=== PATIENT | female | born 1950 | race Caucasian/White ===

== ENCOUNTER 2019-07-09 14:29 | Outpatient (CLI) | payer MEDICARE, OTHER, SELFPAY ==
--- NOTE | 2019-07-09 14:40 | MM_ITS ---
WS: [id number] SCREENING DIGITAL MAMMOGRAM WITH CAD HISTORY: SCREENING COMPARISON: 04/05/2017 and 03/07/2016 Bilateral CC and MLO views submitted. Computer aided detection analyzed. Breast composition: There are scattered areas of fibroglandular density. No suspicious masses, microc alcifications or architectural distortion. MM/[place] [id number] IMPRESSION: BI-RADS: 1-Negative FOLLOW UP: 1 Year Follow-up
--- NOTE | 2019-07-09 15:16 | XR_ITS ---
WS: [id number] SCREENING DEXA SCAN [facility] CLINICAL INFORMATION: ASYMPTOMATIC POST MENOPAUSAL STATUS COMPARISON: None. FINDINGS: The L1-L4 bone mineral density measures 0.905 g/cm2. This corresponds to a T score score of -2.3 and Z score of -0.7. Left femoral neck bone mineral density measures 0.764 g/cm2. This corresponds to a T score of -1.9 an d Z score of -0.5. Right femoral neck bone mineral density measures 0.746 g/cm2. This corresponds to a T score -2.1of an d Z score of -0.6. Mean femoral neck bone mineral density measures 0.755 g/cm2. This corresponds to a T score of -2.0 an d Z score of -0.6. XR/XR DEXA axial skeleton* [id number] IMPRESSION: Osteopenia. Patient's FRAX calculated 10 year probability for major osteoporotic fracture i s 23.1 % and osteoporotic hip fracture is 5.9%.
== END 2019-07-09 14:30 | disposition home or self-care (01) ==
PROVIDERS: Family Provider Nurse Practitioner; PCP Internal Medicine; Visit Provider Internal Medicine
DX: Z12.31 Encounter for screening mammogram for malignant neoplasm of breast (principal); Z78.0 Asymptomatic menopausal state
CPT/HCPCS: 77067; 77080

== ENCOUNTER → 2019-08-07 13:30 | Outpatient (BNVA) | payer MEDICARE, OTHER, SELFPAY | PROVIDERS: Family Provider Nurse Practitioner; PCP Internal Medicine; Visit Provider Specialist | DX: G43.711 Chronic migraine without aura, intractable, with status migrainosus (principal) | CPT/HCPCS: 64615; J0585 ==

== ENCOUNTER → 2019-10-30 13:28 | Outpatient (BNVA) | payer MEDICARE, OTHER, SELFPAY | PROVIDERS: Family Provider Nurse Practitioner; PCP Internal Medicine; Visit Provider Specialist | DX: G43.711 Chronic migraine without aura, intractable, with status migrainosus (principal) | CPT/HCPCS: 64615; J0585 ==

== ENCOUNTER 2020-07-02 12:00 | Outpatient (CLI) | payer MEDICARE, OTHER, SELFPAY | END 2020-07-02 12:01 | disposition home or self-care (01) | LOC: SLEEP 07-12 12:24 | PROVIDERS: Family Provider Nurse Practitioner; PCP Internal Medicine; Visit Provider Internal Medicine | DX: G47.10 Hypersomnia, unspecified (principal); R06.83 Snoring; R53.83 Other fatigue | CPT/HCPCS: G0399 ==

== ENCOUNTER 2020-12-09 14:36 | Emergency (ER) | payer MEDICARE, OTHER, SELFPAY ==
[2020-12-09 15:41] VITALS: BP 128/79; PULSE 100; RESP 18; TEMP 36.7; O2SAT 94; BMI 22.1
[2020-12-09 18:32] VITALS: BP 141/79; PULSE 113; RESP 20; TEMP 36.8; O2SAT 96
--- NOTE | 2020-12-09 18:35 | ED_ITS ---
HPI - General Adult General: Chief complaint: Headache Stated complaint: Headache Time Seen by Provider: 12/09/20 18:29 History of Present Illness: HPI narrative: 70-year-old female comes in today with 2-week episode of cough and congestion. Patient reports for the last 2 days she has had increased migraine symptoms. Patient was tested last for COVID-19 was negative. Patient was referred to the ER for chest x-ray and laboratory values for suspected pneumonia. Patient appears mildly unwell but not toxic. Respirations are even. Patient appears in mild to moderate pain. Patient reports that this is the worst headache she has had in a long time. Review of Systems General: Reports: 10 or more systems reviewed and unremarkable except in HPI and below ENMT: Reports: nasal congestion Resp: Reports: non-productive cough PFSH ED PFSH: Family History Other CAD (coronary artery disease) Cancer Diabetes Hypertension Social History Smoking and tobacco status: never smoked Physical Exam Const: COMMON NORMALS: no acute distress and patient oriented x3 GENERAL APPEARANCE: cooperative HENMT: COMMON NORMALS: normocephalic and TM's normal bilaterally HEAD & SCALP: normal to inspection and normocephalic NOSE: Nasal discharge present TYMPANIC MEMBRANE: TM's normal bilaterally MOUTH: Normal oral and palatal mucosa present THROAT: posterior oropharynx abnormal erythema Eye: GENERAL EYE: appearance normal, both eyes and all related structures Neck/C-Spine: COMMON NORMALS: full ROM Lymph: LYMPHATIC: no lymphadenopathy noted Chest: COMMONS NORMALS: normal inspection of the chest Resp: COMMON NORMALS: normal respiratory effort EFFORT & INSPECTION: Yes able to speak in complete sentences Cardio: COMMON NORMALS: regular rate and regular rhythm RATE: regular rate RHYTHM: regular rhythm GI: COMMON NORMALS: non-tender Back/Pelvis: COMMON NORMALS: thoracic and lumbar spine normal to inspection Extremity: COMMON NORMALS: normal to inspection Neuro: COMMON NORMALS: patient oriented x3 and moves all extremities Psych: COMMON NORMALS: mental status grossly normal and cooperative Skin: COMMON NORMALS: no rashes or lesions noted GENERAL SKIN EXAM: no rashes or lesions noted Course Vital Signs: Vital signs: Vital Signs Temperature 98.3 F 07/08/21 18:32 Pulse Rate 86 12/09/20 19:57 Respiratory Rate 16 12/09/20 19:57 Blood Pressure 114/61 12/09/20 19:57 Pulse Oximetry 95 12/09/20 19:57 MDM - General Adult MDM Narrative: Medical decision making narrative: 70-year-old female comes in with 6 headache. Patient reports frontal type headache been going on for about 2 weeks. Patient has been seen by primary care and diagnosed with a upper respiratory infection and has been given injections for her symptoms. Patient had been tested for Covid last week and was negative. On exam patient appears in mild to moderate pain. Patient is alert oriented. No signs of meningismus is noted. Pupils are equal and reactive. No focal neuro deficits. Patient m oves all extremities well. Differential diagnosis includes but not limited to migraine headache, sinusitis, upper respiratory infection, COVID-19. COVID-19 test was negative. Laboratory values noted to increase in white blood cell count 14.5, some increase in CRP. CT of the head indicated significant sinusitis. Remainder of exam was normal. Patient was given a dose of Rocephin IV along with dexamethasone. Patient was also treated for her migraine headache with Toradol, Reglan, and 2 mg of morphine. Patient will be continued on Augmentin and Flonase for her sinusitis and hydrocodone for pain. Patient reported understanding of care plan and need for follow-up or return to the ER. Lab Data: Labs: Lab Results 12/09/20 12/09/20 12/09/20 Range/Units 18:30 18:45 18:50 WBC 14.5 H (4.0-10.0) 10^3/ uL RBC 4.44 (4.1-5.3) 10^6/u L Hgb 13.4 (11.5-15.3) g/dL Hct 41.1 (37.0-47.0) % MCV 92.6 (81-99) fL MCH 30.2 (28.0-34.0) pg MCHC 32.6 (30.0-36.0) g/dL RDW 12.0 L (12.1-15.1) % Plt Count 403 H (130-400) 10^3/c mm MPV 10.6 H (7.4-10.4) fL Neut % (Auto) 76.7 % Lymph % (Auto) 11.6 % [place] % (Auto) 9.4 % Eos % (Auto) 0.9 % Baso % (Auto) 0.5 % Neut # (Auto) 11.17 H (1.8-7.7) 10^3/u L Lymph # (Auto) 1.7 (0.8-4.8) 10^3/u L [place] # (Auto) 1.4 H (0.2-0.9) 10^3/u L Eos # (Auto) 0.1 (0.0-0.8) 10^3/u L Baso # (Auto) 0.1 (0.0-0.1) 10^3/u L Nucleated RBC % (a uto) 0 % Nucleated RBCs # 0.0 /100WBC Sodium (136-145) mmol/L Potassium (3.5-5.1) mmol/L Chloride (98-107) mmol/L Carbon Dioxide (22-29) mmol/L Anion Gap (5-19) BUN (8-23) mg/dL Creatinine (0.5-0.9) mg/dL GFR Calculation Glucose (65-115) mg/dL Calculated Osmolal ity (285-295) mOsm/k g Lactate (0.5-2.2) mmol/L Calcium (8.5-10.5) mg/dL Total Bilirubin (0.15-1.2) mg/dL AST (0-32) U/L ALT (0-33) U/L Alkaline Phosphata se (35-105) IU/L C-Reactive Protein (0.0-4.9) mg/L Total Protein (6.6-8.7) g/dL Albumin (3.5-5.2) g/dL Globulin (1.3-4.6) g/dL Procalcitonin (0-0.5) ng/mL Urine Color Yellow (Yellow) Urine Appearance Clear (CLEAR) Urine pH 5 (5-7) Ur Specific Gravit y 1.020 (1.005-1.030) Urine Protein Neg (Negative) Urine Glucose (UA) Norm (Normal) Urine Ketones Negative (Negative) Urine Blood Neg (Negative) Urine Nitrate Negative (Negative) Urine Bilirubin Neg (Negative) Urine Urobilinogen Norm (Negative) mg/dL Ur Leukocyte Esmer ase Negative (Negative) SARS-CoV-2 Ag (Rap id) Negative (Negative) 12/09/20 12/09/20 Range/Units 18:50 18:50 WBC (4.0-10.0) 10^3/ uL RBC (4.1-5.3) 10^6/u L Hgb (11.5-15.3) g/dL Hct (37.0-47.0) % MCV (81-99) fL MCH (28.0-34.0) pg MCHC (30.0-36.0) g/dL RDW (12.1-15.1) % Plt Count (130-400) 10^3/c mm MPV (7.4-10.4) fL Neut % (Auto) % Lymph % (Auto) % [place] % (Auto) % Eos % (Auto) % Baso % (Auto) % Neut # (Auto) (1.8-7.7) 10^3/u L Lymph # (Auto) (0.8-4.8) 10^3/u L [place] # (Auto) (0.2-0.9) 10^3/u L Eos # (Auto) (0.0-0.8) 10^3/u L Baso # (Auto) (0.0-0.1) 10^3/u L Nucleated RBC % (a uto) % Nucleated RBCs # /100WBC Sodium 136 (136-145) mmol/L Potassium 3.8 (3.5-5.1) mmol/L Chloride 99 (98-107) mmol/L Carbon Dioxide 25 (22-29) mmol/L Anion Gap 15.8 (5-19) BUN 6 L (8-23) mg/dL Creatinine 0.7 (0.5-0.9) mg/dL GFR Calculation Not Reportable Glucose 115 (65-115) mg/dL Calculated Osmolal ity 281 L (285-295) mOsm/k g Lactate 1.1 (0.5-2.2) mmol/L Calcium 9.6 (8.5-10.5) mg/dL Total Bilirubin 0.2 (0.15-1.2) mg/dL AST 20 (0-32) U/L ALT 26 (0-33) U/L Alkaline Phosphata se 144 H (35-105) IU/L C-Reactive Protein 56.9 H (0.0-4.9) mg/L Total Protein 7.5 (6.6-8.7) g/dL Albumin 3.6 (3.5-5.2) g/dL Globulin 3.9 (1.3-4.6) g/dL Procalcitonin 0.04 (0-0.5) ng/mL Urine Color (Yellow) Urine Appearance (CLEAR) Urine pH (5-7) Ur Specific Gravit y (1.005-1.030) Urine Protein (Negative) Urine Glucose (UA) (Normal) Urine Ketones (Negative) Urine Blood (Negative) Urine Nitrate (Negative) Urine Bilirubin (Negative) Urine Urobilinogen (Negative) mg/dL Ur Leukocyte Esmer ase (Negative) SARS-CoV-2 Ag (Rap id) (Negative) Discharge Plan Discharge Patient Disposition: Home Clinical Impression: Sinusitis Qualifiers: Sinusitis location: ethmoidal Chronicity: acute Recurrence: not specified as recurrent Qualified Code(s): J01.20 - Acute ethmoidal sinusitis, unspecified Condition: Stable Prescriptions: New Augmentin 875-125 mg tablet 1 tab PO BID Qty: 20 RF: 0 Flonase Allergy Relief 50 mcg/actuation spray,suspension 1 spray intranasal BID Qty: 16 RF: 0 hydrocodone-acetaminophen 5-325 mg tablet 1 tab PO Q8H PRN (Reason: pain (scale score 7-10)) Qty: 7 RF: 0 No Action imipramine HCl 50 mg tablet 50 mg PO DAILY RF: 0 metoprolol tartrate 25 mg tablet 12.5 mg PO BID RF: 0 sumatriptan succinate 100 mg tablet 100 mg PO Q2H PRNRF: 0 venlafaxine 150 mg capsule,extended release 24hr 150 mg PO QDAY Qty: 30 RF: 2 diazepam 10 mg tablet 20 mg PO ONCE PRN (Reason: needle phoba) 1 Days Qty: 2 RF: 3 divalproex 250 mg tablet,delayed release (DR/EC) 250 mg PO BID Qty: 60 RF: 5 sumatriptan succinate 100 mg tablet See Rx Instructions .ROUTE .COMPLEX Qty: 9 RF: 0 Discharge Orders: Discharge ED (Routine); Ordered 12/09/20 Ordered By: Gregory Coronado Referrals: Kellie Velazquez MD [Primary Care Provider] - Discharge Diet: Usual diet Discharge Activity: Increase activity as tolerated Patient Instructions: Sinusitis (ED), Opioid Safety Activity Restrictions/Additional Instructions: Drink plenty of fluids. Take antibiotic twice a day for the next 10 days. Use Flonase nasal spray 1 spray each nostril twice a day until pain and symptoms subside. Use hydrocodone for breakthrough pain. Use acetaminophen and ibuprofen for control of pain. Follow-up with primary care as needed. Return to the ER for worsening symptoms or new concerns. 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
--- NOTE | 2020-12-09 18:35 | XRR_ITS ---
PROCEDURE INFORMATION: Exam: XR Chest Exam date and time: 12/09/2020 6:35 PM Age: 70 years old Clinical indication: Shortness of breath; Additional info: Congestion, SOB TECHNIQUE: Imaging protocol: XR of the chest. Views: 1 view. COMPARISON: CTA Chest-Pulmonary [place] [id number] 07/22/2018 3:03 PM FINDINGS: Lungs: Interval appearance of 6 mm pulmonary nodule right upper lobe. Correlation with nonemergent CT chest may be helpful. Pleural spaces: Unremarkable. No pleural effusion. No pneumothorax. Heart/Mediastinum: Unremarkable. No cardiomegaly. Bones/joints: Unremarkable. XR/XR chest 1V portable [id number] IMPRESSION: 1. Interval appearance of 6 mm pulmonary nodule right upper lobe. Correlation with nonemergent CT chest may be helpful. 2. No acute findings.
--- NOTE | 2020-12-09 18:35 | CTR_ITS ---
PROCEDURE INFORMATION: Exam: CT Head Without Contrast Exam date and time: 12/09/2020 6:35 PM Age: 70 years old Clinical indication: Pain; Headache; Migraine TECHNIQUE: Imaging protocol: Computed tomography of the head without contrast. Radiation optimization: All CT scans at this facility use at least one of these dose optimization techniques: automated exposure control; mA and/or kV adjustment per patient size (includes targeted exams where dose is matched to clinical indication); or iterative reconstruction. COMPARISON: No relevant prior studies available. RADIATION DOSE METRICS: Total DLP (mGy-cm): 855.42 FINDINGS: Brain: Mild to moderate cerebral atrophy and ischemic leukoencephalopathy. Cerebral ventricles: No ventriculomegaly. Paranasal sinuses: Severe bilateral sphenoid sinus disease which can create severe vertex headaches. Moderate right ethmoid sinus disease. Severe left ethmoid sinus disease. Severe left maxillary maxillary, ethmoid and frontal sinus disease. Severe left frontal sinus disease. Mastoid air cells: Visualized mastoid air cells are well aerated. Bones/joints: Unremarkable. No acute fracture. Soft tissues: Unremarkable. CT/CT head wo con* [id number] IMPRESSION: 1. Severe bilateral sphenoid sinus disease which can create severe vertex headaches. Impression. 2. Moderate right ethmoid sinus disease. 3. Severe left maxillary maxillary, ethmoid and frontal sinus disease. 4. No acute intracranial findings. Radiation Dose CTDIVOL = (mGy): DLP = 855.42 (mGy-cm)
[2020-12-09 19:15] LABS: Add Urine Microscopic? NO; Charge for UA Resulting for Rev
[2020-12-09 19:17] LABS: Basophils # 0.1 10^3/uL (0.0-0.1); Basophils % 0.5 %; Eosinophils # 0.1 10^3/uL (0.0-0.8); Eosinophils % 0.9 %; Hematocrit 41.1 % (37.0-47.0); Hemoglobin 13.4 g/dL (11.5-15.3); Lymphocytes # 1.7 10^3/uL (0.8-4.8); Lymphocytes % 11.6 %; Mean Corpuscular HGB Conc 32.6 g/dL (30.0-36.0); Mean Corpuscular Hemoglobin 30.2 pg (28.0-34.0); Mean Corpuscular Volume 92.6 fL (81-99); Mean Platelet Volume 10.6 fL (7.4-10.4); Monocytes # 1.4 10^3/uL (0.2-0.9); Monocytes % 9.4 %; Neutrophils # 11.17 10^3/uL (1.8-7.7); Neutrophils % 76.7 %; Nucleated Red Blood Cells % 0 %; Platelet Count 403 10^3/cmm (130-400); Red Blood Count 4.44 10^6/uL (4.1-5.3); White Blood Count 14.5 10^3/uL (4.0-10.0)
[2020-12-09 19:28] VITALS: BP 103/85; PULSE 102; RESP 18; O2SAT 95
[2020-12-09] MEDS: sodium chloride 0.9% 500 ML IV (19:29)
[2020-12-09] MEDS: ketorolac 30 mg/mL INJ 15 MG IVP (19:30)
[2020-12-09] MEDS: metoclopramide 5 mg/mL SDV 2 mL IVP (19:31)
[2020-12-09 19:32] LABS: Lactate (Lactic Acid level) 1.1 mmol/L (0.5-2.2)
[2020-12-09 19:34] LABS: Alanine Aminotransferase 26 U/L (0-33); Albumin Level 3.6 g/dL (3.5-5.2); Alkaline Phosphatase 144 IU/L (35-105); Anion Gap 15.8 (5-19); Aspartate Amino Transferase 20 U/L (0-32); Blood Urea Nitrogen 6 mg/dL (8-23); C Reactive Protein 56.9 mg/L (0.0-4.9); Calcium 9.6 mg/dL (8.5-10.5); Carbon Dioxide 25 mmol/L (22-29); Chloride 99 mmol/L (98-107); Creatinine Clr Calc Pharmacy 55.1062; Globulin 3.9 g/dL (1.3-4.6); Glucose 115 mg/dL (65-115); Osmolality Calculated 281 mOsm/kg (285-295); Potassium 3.8 mmol/L (3.5-5.1); Sodium 136 mmol/L (136-145); Total Bilirubin 0.2 mg/dL (0.15-1.2); Total Protein 7.5 g/dL (6.6-8.7)
[2020-12-09 19:36] LABS: Urine Appearance Clear (CLEAR); Urine Color Yellow (Yellow)
[2020-12-09 19:37] LABS: Bilirubin Urine Neg (Negative); Blood Urine Neg (Negative); Glucose Urine UA Norm (Normal); Ketones Urine Negative (Negative); Leukocyte Esterase Urine Negative (Negative); Nitrate Urine Negative (Negative); Protein Urine Neg (Negative); Urobilinogen Urine Norm (Negative); pH Urine 5 (5-7)
[2020-12-09 19:42] LABS: Procalcitonin 0.04 ng/mL (0-0.5)
[2020-12-09 19:43] LABS: SARS Covid-2 Antigen Negative (Negative)
[2020-12-09 19:57] VITALS: BP 114/61; PULSE 86; RESP 16; O2SAT 95
[2020-12-09] MEDS: dexamethasone 4 mg/mL INJ 6 MG IVP (21:12)
[2020-12-09] MEDS: cefTRIAXone 1,000 MG in sodium chloride 0.9% (plus) 50 ML 100 MG IV (21:12)
[2020-12-09 21:16] VITALS: RESP 18; O2SAT 97
[2020-12-09] MEDS: morphine 4 mg/mL SDV 1 mL 2 MG IVP (21:16)
[2020-12-09 22:03] VITALS: BP 142/82; PULSE 98; RESP 18; O2SAT 98
== END 2020-12-09 22:16 | disposition home or self-care (01) ==
PROVIDERS: Emergency Provider Nurse Practitioner Family; PCP Internal Medicine
DX: J01.20 Acute ethmoidal sinusitis, unspecified (principal); Z20.822 Contact with and (suspected) exposure to COVID-19
CPT/HCPCS: 36415; 70450; 71045; 80053; 81003; 83605; 84145; 85025; 86140; 87040; 87426; 96365; 96375; 99284; J0696; J1100; J1885; J2270; J2765; J7040

== ENCOUNTER 2021-01-24 13:29 | Outpatient (CLI) | payer MEDICARE, OTHER, SELFPAY ==
--- NOTE | 2021-01-24 13:36 | MM_ITS ---
WS: [id number] BILATERAL DIGITAL SCREENING MAMMOGRAPHY WITH CAD CLINICAL INFORMATION: SCREENING HISTORY: Screening mammogram. No current complaints. COMPARISON: July 09, 2019 TECHNIQUE: Bilateral CC and MLO views. FINDINGS: Scattered fibroglandular densities bilaterally. No suspicious focal mass, asymmetry, calcifications, or architectural distortion. No evidence of malignancy. MM/[place] [id number] IMPRESSION: BI-RADS: 1-Negative FOLLOW UP: 1 Year Follow-up Recommend return to annual screening mammography.
== END 2021-01-24 13:30 | disposition home or self-care (01) ==
LOC: RADSHAW 13:34
PROVIDERS: PCP Internal Medicine; Visit Provider Internal Medicine
DX: Z12.31 Encounter for screening mammogram for malignant neoplasm of breast (principal)
CPT/HCPCS: 77067

== ENCOUNTER 2022-02-08 06:00 | Outpatient (RCR) | payer MEDICARE, OTHER, SELFPAY | END 2022-03-03 23:59 | disposition home or self-care (01) | LOC: TPT 06:00 | PROVIDERS: PCP Internal Medicine; Visit Provider Physical Medicine & Rehabilitation | DX: S42.255D Nondisplaced fracture of greater tuberosity of left humerus, subsequent encounter for fracture with routine healing (principal); X58.XXXD Exposure to other specified factors, subsequent encounter; S43.432D Superior glenoid labrum lesion of left shoulder, subsequent encounter; M75.112 Incomplete rotator cuff tear or rupture of left shoulder, not specified as traumatic; M19.012 Primary osteoarthritis, left shoulder | CPT/HCPCS: 97110; 97140; 97162 ==

== ENCOUNTER 2022-03-04 06:00 | Outpatient (RCR) | payer MEDICARE, OTHER, SELFPAY | END 2022-04-03 23:59 | disposition home or self-care (01) | LOC: TPT 06:00 | PROVIDERS: PCP Internal Medicine; Visit Provider Physical Medicine & Rehabilitation | DX: S42.255D Nondisplaced fracture of greater tuberosity of left humerus, subsequent encounter for fracture with routine healing (principal); X58.XXXD Exposure to other specified factors, subsequent encounter | CPT/HCPCS: 97110; 97140; 97164 ==

== ENCOUNTER 2022-04-04 06:00 | Outpatient (RCR) | payer MEDICARE, OTHER, SELFPAY | END 2022-05-03 23:59 | disposition home or self-care (01) | LOC: TPT 06:00 | PROVIDERS: PCP Internal Medicine; Visit Provider Physical Medicine & Rehabilitation | DX: S42.255D Nondisplaced fracture of greater tuberosity of left humerus, subsequent encounter for fracture with routine healing (principal); X58.XXXD Exposure to other specified factors, subsequent encounter | CPT/HCPCS: 97110 ==

== ENCOUNTER 2022-12-15 14:56 | Outpatient (CLI) | payer MEDICARE, OTHER, SELFPAY ==
--- NOTE | 2022-12-15 15:06 | MR_ITS ---
WS: [id number] MRI HEAD WITHOUT CONTRAST TECHNIQUE: Sagittal T1, T2 axial, T2 axial FLAIR, axial and coronal T1 images, axial susceptibility w eighted imaging, axial diffusion weighted images, and coronal T2 images were obtained. CLINICAL INFORMATION: MEMORY LOSS COMPARISON: CT 12/22 and MRI 2009 FINDINGS: No evidence of restricted diffusion to suggest acute ischemia. Ventricular system and basal cisterns are patent. Mild to moderate small vessel changes with moderate parenchymal volume loss progressed si nce 2010. Chronic lacunar infarct LEFT centrum semiovale was present in 2010. Tiny chronic lacunar infarct LEFT cerebellum. Normal vascular flow voids at the skull base. No extra axial fluid collections. No evidence of mass or mass effect. Retention cyst or polyp RIGHT maxillary sinus measuring 1.7 x 1.2 CCM. Paranasal sinuses are otherwise well aerated. Mild mucosal thickening in the mastoid air cells. Normal posterior nasopharynx. Normal parapharyngeal fat. No hemosiderin on the susceptibly weighted images. Normal optic chiasm and pituitary infundibulum. Moderate symmetric atrophy temporal lobes and hippoca mpal formations. MR/MR head wo con* [id number] IMPRESSION: 1. No evidence of restricted diffusion to suggest acute ischemia. 2. [id number] small vessel changes with moderate parenchymal volume loss progressed compared to 2010. 3. Moderate symmetric atrophy temporal lobes and hippocampal formations. 4. No hemosiderin on the susceptibility weighted imaging 5. Retention cyst or polyp RIGHT maxillary sinus measuring 1.7 x 1.2 CM.
== END 2022-12-15 14:57 | disposition home or self-care (01) ==
PROVIDERS: PCP Internal Medicine; Visit Provider Internal Medicine
DX: R41.3 Other amnesia (principal); J33.8 Other polyp of sinus; G93.89 Other specified disorders of brain; G31.9 Degenerative disease of nervous system, unspecified
CPT/HCPCS: 70551

== ENCOUNTER 2023-04-06 12:55 | Outpatient (CLI) | payer MEDICARE, OTHER, SELFPAY ==
--- NOTE | 2023-04-06 13:00 | MM_ITS ---
WS: [id number] BILATERAL 3D TOMOSYNTHESIS DIGITAL SCREENING MAMMOGRAPHY WITH CAD CLINICAL INFORMATION: SCREENING HISTORY: Screening mammogram. No current complaints. COMPARISON: 2020 TECHNIQUE: Bilateral CC and MLO views. FINDINGS: Scattered fibroglandular densities bilaterally. No suspicious focal mass, asymmetry, calcifications, or architectural distortion. No evidence of malignancy. IMPRESSION: MM/[place] [id number] BI-RADS: 1-Negative FOLLOW UP: 1 Year Follow-up Recommend return to annual screening mammography.
== END 2023-04-06 12:56 | disposition home or self-care (01) ==
LOC: MOBLMAM 12:57
PROVIDERS: PCP Internal Medicine; Visit Provider Internal Medicine
DX: Z12.31 Encounter for screening mammogram for malignant neoplasm of breast (principal)
CPT/HCPCS: 77063; 77067

== ENCOUNTER → 2023-06-26 09:54 | Outpatient (BNVA) | payer MEDICARE, OTHER, SELFPAY | PROVIDERS: PCP Internal Medicine; Referring Provider Internal Medicine; Visit Provider Specialist | DX: G30.9 Alzheimer's disease, unspecified (principal); F02.80 Dementia in other diseases classified elsewhere, unspecified severity, without behavioral disturbance, psychotic disturbance, mood disturbance, and anxiety | CPT/HCPCS: 96116; 99205 ==

== ENCOUNTER → 2023-10-24 09:47 | Outpatient (BNVA) | payer MEDICARE, OTHER, SELFPAY | PROVIDERS: PCP Internal Medicine; Visit Provider Specialist | DX: G43.711 Chronic migraine without aura, intractable, with status migrainosus (principal); G31.84 Mild cognitive impairment of uncertain or unknown etiology | CPT/HCPCS: 99213 ==

== ENCOUNTER 2024-01-11 13:21 | Outpatient (CLI) | payer MEDICARE, OTHER, SELFPAY ==
--- NOTE | 2024-01-11 13:26 | XR_ITS ---
WS: [id number] SCREENING DEXA SCAN [employer] CLINICAL INFORMATION: ASYMPTOMATIC POSTMENOPAUSAL STATUS COMPARISON: 2019 FINDINGS: The L1-L4 bone mineral density measures 0.884 g/cm2. This corresponds to a T score score of -2.5 and Z score of -0.6. Left femoral neck bone mineral density measures 0.692 g/cm2. This corresponds to a T score of -2.5 an d Z score of -0.7. Right femoral neck bone mineral density measures 0.682 g/cm2. This corresponds to a T score -2.6of an d Z score of -0.8. Mean femoral neck bone mineral density measures 0.687 g/cm2. This corresponds to a T score of -2.5 an d Z score of -0.7. XR/XR DEXA axial skeleton* [id number] IMPRESSION: Osteoporosis lumbar spine. Osteoporosis femoral necks. Patient's FRAX calculated 10 year probability for major osteoporotic fracture i s 20.7% and osteoporotic hip fracture is 8.1%. Bone mineral density lumbar spine decreased -2.3% Bone mineral density femoral necks decreased -9.0%
== END 2024-01-11 13:22 | disposition home or self-care (01) ==
LOC: RAD 13:23
PROVIDERS: PCP Internal Medicine; Visit Provider Internal Medicine
DX: Z78.0 Asymptomatic menopausal state (principal); M81.0 Age-related osteoporosis without current pathological fracture
CPT/HCPCS: 77080

== ENCOUNTER 2024-04-15 13:58 | Outpatient (CLI) | payer MEDICARE, OTHER, SELFPAY ==
--- NOTE | 2024-04-15 14:00 | MM_ITS ---
WS: [id number] Bilateral screening 3D tomosynthesis digital mammogram, 04/15/2024 2:00 PM Clinical Data: SCREENING Comparison: 04/06/2023, 01/24/2021, 07/09/2019, 04/05/2017, 04/07/2016, 02/09/2014, 02/04/2013, 01/29/2012. Findings: No spiculated masses or clustered calcifications are seen. There are no secondary signs of carcinoma . MM/MM scr BI tomosynthesis [id number] Impression: Negative bilateral mammogram unchanged. Recommend annual screening mammograms. BIRADS: 1 - Negative. FOLLOW UP: 1 Year Follow-up DENSITY: There are scattered areas of fibroglandular density. The CAD mechanical and auto body car checker was used
== END 2024-04-15 13:59 | disposition home or self-care (01) ==
LOC: MOBLMAM 13:58
PROVIDERS: PCP Internal Medicine; Visit Provider Internal Medicine
DX: Z12.31 Encounter for screening mammogram for malignant neoplasm of breast (principal)
CPT/HCPCS: 77063; 77067

== ENCOUNTER 2024-05-05 | Emergency (ER) | payer MEDICARE, OTHER, SELFPAY ==
[2024-05-05] VITALS (8 sets, daily range): BP systolic 125–165; BP diastolic 72–84; PULSE 83–102; RESP 14–20; TEMP 36.4; O2SAT 90–100; BMI 23.0
--- NOTE | 2024-05-05 00:05 | ECG_ITS ---
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 Measurements Intervals [place] Rate: 82 P: 25 KS: 157 QRS: 29 QRSD: 68 T: 52 QT: 336 QTc: 393 Interpretive Statements SINUS RHYTHM WITH MARKED SINUS ARRHYTHMIA No previous ECG available for comparison Electronically Signed On 05-06-2024 21:45:33 [employer]ING P[employer]LING PACKER by Senthil Norwood M.D. [email or web address]
--- NOTE | 2024-05-05 00:06 | XRR_ITS ---
PROCEDURE INFORMATION: Exam: XR Chest Exam date and time: 05/05/2024 12:35 AM Age: 73 years old Clinical indication: Shortness of breath; Chest pressure; Patient HX: Chest pain with SOB and nausea; Additional info: Cp SOB TECHNIQUE: Imaging protocol: Radiologic exam of the chest. Views: 1 view. COMPARISON: CR (CHEST, ) 12/09/2020 7:03 PM FINDINGS: Lungs: Minimal bibasilar atelectasis. No lobar consolidation Pleural spaces: Unremarkable. No pleural effusion. No pneumothorax. Heart/Mediastinum: Unremarkable. No cardiomegaly. Bones/joints: Unremarkable. XR/XR chest 1V portable [id number] IMPRESSION: Minimal bibasilar atelectasis.
[2024-05-05] MEDS: lidocaine 2% viscous 15 ML, aluminum-mag hydrox-simethicon 30 ML, sucralfate oral liq 1 GM PO (00:22)
[2024-05-05] MEDS: morphine 4 mg/mL SDV 1 mL IVP ×2 (00:23→02:37)
[2024-05-05] MEDS: ondansetron 2 mg/ML SDV 2 mL 4 MG IVP (00:23)
[2024-05-05 00:29] LABS: Basophils % 0.3 %; Eosinophils # 0.2 10^3/uL (0.0-0.8); Eosinophils % 1.1 %; Hematocrit 46.8 % (36-47); Lymphocytes # 3.2 10^3/uL (0.8-4.8); Lymphocytes % 23.1 %; Mean Corpuscular HGB Conc 32.9 g/dL (30-55); Mean Corpuscular Hemoglobin 30.3 pg (27-33); Mean Corpuscular Volume 91.9 fl (85-98); Mean Platelet Volume 10.1 fL (7.4-10.4); Monocytes # 1.2 10^3/uL (0.2-0.9); Monocytes % 8.5 %; Neutrophils # 9.13 10^3/uL (1.8-7.7); Neutrophils % 66.5 %; Nucleated Red Blood Cells % 0 %; Platelet Count 263 10^3/cmm (157-399); Red Blood Count 5.09 10^6/uL (3.85-5.65); Red Cell Distribution Width 13.2 % (12.1-15.1); White Blood Count 13.72 10^3/uL (3.29-11.43)
[2024-05-05 00:38] LABS: INR 0.81 (0.8-1.2)
[2024-05-05 00:39] LABS: Partial Thromboplastin Time 32.5 SECONDS (23.9-36.7)
[2024-05-05 00:41] LABS: D Dimer 1.09 ug/mLFEU (0-0.59)
[2024-05-05 00:52] LABS: Troponin(5th) Baseline < 6 ng/L (0-10)
[2024-05-05 00:59] LABS: Alanine Aminotransferase 18 U/L (0-33); Albumin Level 4.6 g/dL (3.5-5.2); Alkaline Phosphatase 125 U/L (35-105); Anion Gap 17.8 (5-19); Aspartate Amino Transferase 21 U/L (0-32); Blood Urea Nitrogen 15 mg/dL (8-23); Calcium 10.7 mg/dL (8.5-10.5); Carbon Dioxide 24 mmol/L (22-29); Chloride 101 mmol/L (98-107); Creatinine Clr Calc Pharmacy 53.5938; Globulin 2.7 g/dL (1.3-4.6); Glucose 97 mg/dL (65-115); Lipase 50 U/L (13-60); NT Pro B Type Natriuretic Pept 66 pg/mL (0-125); Osmolality Calculated 289 mOsm/kg (285-295); Potassium 3.8 mmol/L (3.5-5.1); Sodium 139 mmol/L (136-145); Total Bilirubin 0.9 mg/dL (0.15-1.2); Total Protein 7.3 g/dL (6.6-8.7)
--- NOTE | 2024-05-05 01:04 | CTR_ITS ---
PROCEDURE INFORMATION: Exam: CTA Chest With Contrast Exam date and time: 05/05/2024 1:30 AM Age: 73 years old Clinical indication: Pain and abnormal findings; Abnormal lab test; Other: N/a; Vomiting; Abdominal pain; Abnormal diagnostic tests; Elevated d-dimer; Chest pressure; Prior surgery; Surgery date: 6+ months; Surgery type: Hysterectomy; Patient HX: C/O chest/epigastric pain with nausea. Dimer 1.09. ; Additional info: Epigastric, chest, ruq pain. Elevated d dimer TECHNIQUE: Imaging protocol: Computed tomographic angiography of the chest with contrast. Exam focused on the arteries. 3D rendering (Not supervised by radiologist): MIP and/or 3D reconstructed images were created by the technologist. Radiation optimization: All CT scans at this facility use at least one of these dose optimization techniques: automated exposure control; mA and/or kV adjustment per patient size (includes targeted exams where dose is matched to clinical indication); or iterative reconstruction. Contrast material: OMNI 350; Contrast volume: 100 ml; Contrast route: INTRAVENOUS (IV); COMPARISON: CT angio chest PE protcl [id number] 07/22/2018 3:03 PM RADIATION DOSE METRICS: Total DLP (mGy-cm): 670.5 FINDINGS: Pulmonary arteries: Normal. No pulmonary emboli. Aorta: Unremarkable. No aortic aneurysm. No aortic dissection. Lungs: Minimal ground-glass changes in the lung bases compatible with atelectasis. Bilateral central bronchial wall thickening suspicious for bronchitis. No lobar consolidation . Pleural spaces: Unremarkable. No pneumothorax. No pleural effusion. Heart: Unremarkable. No cardiomegaly. No pericardial effusion. Lymph nodes: Calcified lymph node in the left hilum Bones/joints: Thoracic spine degenerative changes. No acute fracture. Soft tissues: Unremarkable. PROCEDURE INFORMATION: Exam: CT Abdomen And Pelvis With Contrast Exam date and time: 05/05/2024 1:30 AM Age: 73 years old Clinical indication: Pain and abnormal findings; Abnormal lab test; Other: N/a; Vomiting; Abdominal pain; Abnormal diagnostic tests; Elevated d-dimer; Chest pressure; Prior surgery; Surgery date: 6+ months; Surgery type: Hysterectomy; Patient HX: C/O chest/epigastric pain with nausea. Dimer 1.09. ; Additional info: Epigastric, chest, ruq pain. Elevated d dimer TECHNIQUE: Imaging protocol: Computed tomography of the abdomen and pelvis with contrast. Radiation optimization: All CT scans at this facility use at least one of these dose optimization techniques: automated exposure control; mA and/or kV adjustment per patient size (includes targeted exams where dose is matched to clinical indication); or iterative reconstruction. Contrast material: OMNI 350; Contrast volume: 100 ml; Contrast route: INTRAVENOUS (IV); COMPARISON: CR (CHEST, ) 05/05/2024 12:35 AM RADIATION DOSE METRICS: Total DLP (mGy-cm): 670.5 FINDINGS: Liver: Normal. No mass. Gallbladder and biliary ducts: Distended gallbladder with no stones or wall thickening Pancreas: Normal. No ductal dilation. Spleen: Normal. No splenomegaly. Adrenal glands: Normal. No mass. Kidneys and ureters: Normal. No hydronephrosis. Stomach and bowel: Increased stool within the right colon. No dilated bowel. Appendix: No evidence of appendicitis. Intraperitoneal space: Unremarkable. No free air. No significant fluid collection. Vasculature: Unremarkable. No abdominal aortic aneurysm. Lymph nodes: Unremarkable. No enlarged lymph nodes. Urinary bladder: Unremarkable as visualized. Reproductive: Unremarkable as visualized. Bones/joints: Lumbar spine degenerative changes. No acute fracture. Soft tissues: Unremarkable. CT/CT angio chest w abd pel w con IMPRESSION: 1. Bilateral central bronchial wall thickening suspicious for bronchitis. No lobar consolidation . 2. No pulmonary emboli IMPRESSION: 1. Distended gallbladder with no stones or wall thickening 2. Increased stool within the right colon. No dilated bowel.
--- NOTE | 2024-05-05 01:06 | W.ED.ABDPA2 ---
HPI - Abdominal Pain General: Chief Complaint: Abdominal Pain Stated Complaint: CP SOB pain into back Time Seen by Provider: 05/05/24 00:05 History of Present Illness: 73-year-old female with no prior coronary history. She presents as epigastric and chest pain, which she has had a few bouts on and off for the past 1.5 weeks. She localizes her pain to the lower chest and epigastrium, radiating to her back and her left shoulder. She is nauseated. She is short of breath. She is here with a family member, and pain suddenly became worse. She has not vomited. No blood in the stool. No fever. Related Data Home Medications Medication Instructions Recorded Confirmed metoprolol tartrate 25 mg tablet 12.5 mg PO BID 08/07/19 04/23/24 sumatriptan succinate 100 mg tablet 100 mg PO Q2H PRN 08/07/19 04/23/24 atorvastatin 10 mg tablet mg PO 06/26/23 04/23/24 melatonin 10 mg capsule 10 mg PO DAILY 06/26/23 04/23/24 calcium PO 04/23/24 04/23/24 potassium PO 04/23/24 04/23/24 vitamin C PO 04/23/24 04/23/24 Previous Rx's Medication Instructions Recorded galantamine 4 mg tablet See Rx Instructions .Route 04/23/24 .COMPLEX #180 tabs hydrocodone 5 mg-acetaminophen 325 1 tab PO Q8H PRN pain #7 tabs 05/05/24 mg tablet lansoprazole 30 mg capsule,delayed 30 mg PO DAILY #30 caps 05/05/24 release (Prevacid) ondansetron 4 mg disintegrating 4 mg PO Q6H PRN nausea and 05/05/24 tablet vomiting #14 tabs Allergies Allergy/AdvReac Type Severity Reaction Status Date / Time Sulfa (Sulfonamide Allergy Unknown Uknown Verified 04/23/24 13:54 Antibiotics) PFSH ED PFSH: Family History Other CAD (coronary artery disease) Cancer Diabetes Hypertension Social History Smoking and tobacco/nicotine status: never used tobacco/nicotine Physical Exam Const: GENERAL APPEARANCE: cooperative and ill appearing (mildly); not frail appearing HENMT: COMMON NORMALS: normocephalic, atraumatic and Normal external nose present HEAD & SCALP: normocephalic and atraumatic FACE & SINUS: normal facial exam and face symmetric NOSE: Normal external nose present Eye: COMMON NORMALS: Equal, round and reactive pupils present and EOMs intact bilaterally PUPIL: Yes Equal, round and reactive pupils present Neck/C-Spine: GENERAL: Yes trachea midline Chest: CHEST: Yes Symmetrical chest wall rise Resp: COMMON NORMALS: clear to auscultation bilaterally EFFORT & INSPECTION: Yes tachypneic and Yes labored AUSCULTATION: clear to auscultation bilaterally Cardio: COMMON NORMALS: regular rate and regular rhythm RATE: regular rate RHYTHM: regular rhythm GI: COMMON NORMALS: Normal to inspection, nondistended, normoactive bowel sounds present and Soft to palpation PALPATION: Yes Soft to palpation and Yes Tenderness to palpation present (GI) (epigastric) Details: RUQ Extremity: COMMON NORMALS: no pedal edema Neuro: KAREN COMA SCALE: document GCS findings Karen coma scale eye opening: Spontaneous [place] coma scale verbal response: Orientated [place] coma scale motor response: Obey commands [place] coma scale total score: 15 SENSORY EXAM: Yes extremities (intact) Psych: COMMON NORMALS: speech normal SPEECH: Yes normal speech Skin: COMMON NORMALS: no rashes or lesions noted GENERAL SKIN EXAM: no rashes or lesions noted Course Vital Signs: Vital signs: Vital Signs Temperature 97.5 F L 05/05/24 00:06 Pulse Rate 94 05/05/24 04:32 Respiratory Rate 16 05/05/24 04:30 Blood Pressure 125/72 05/05/24 04:32 Pulse Oximetry 90 05/05/24 04:32 Oxygen Delivery Me thod Room Air 05/05/24 02:00 MDM - Abdominal Pain Medical Decision Making The patient's vitals are stable. She is in some distress. Pain is at least partially reproducible on palpation of the epigastrium more than the right upper quadrant. She is given a GI cocktail morphine and Zofran with some relief. Her white blood cell count is 13.7. Her D-dimer is significantly elevated at 1.1. BMP is normal. Alkaline phosphatase mildly elevated, otherwise liver enzymes are normal as is her lipase. Chest x-ray is not remarkable. Given her pain, elevation in D-dimer, and shortness of breath, will perform CTA of the chest with abdomen pelvis follow-through. Please stop gallbladder ultrasound reveals normal gallbladder, mild right ureteral dilatation without hydronephrosis. Pain is improved. This is likely biliary colic, which is essentially resolved now. Short course of pain medication and antiemetic for residual symptoms. Will try to set her up for a HIDA scan as an outpatient, and surgery referral. Management has been asked to help with this. She will return for worsening symptoms Lab Data 05/05/24 00:15 05/05/24 00:15 Labs/Radiology: Radiology Impressions Chest X-Ray 05/05/24 00:06 IMPRESSION: Minimal bibasilar atelectasis. Chest/Abdomen/Pelvis CT 05/05/24 01:04 IMPRESSION: 1. Bilateral central bronchial wall thickening suspicious for bronchitis. No lobar consolidation . 2. No pulmonary emboli IMPRESSION: 1. Distended gallbladder with no stones or wall thickening 2. Increased stool within the right colon. No dilated bowel. Gallbladder Ultrasound 05/05/24 01:53 IMPRESSION: 1. Dilated right ureter without right hydronephrosis. 2. Pancreas obscured by bowel gas. Laboratory Results WBC 13.72 10^3/uL (3.29-11.43) H 05/05/24 00:15 RBC 5.09 10^6/uL (3.85-5.65) 05/05/24 00:15 Hgb 15.40 g/dL (11.27-16.99) 05/05/24 00:15 Hct 46.8 % (36-47) 05/05/24 00:15 MCV 91.9 fl (85-98) 05/05/24 00:15 MCH 30.3 pg (27-33) 05/05/24 00:15 MCHC 32.9 g/dL (30-55) 05/05/24 00:15 RDW 13.2 % (12.1-15.1) 05/05/24 00:15 Plt Count 263 10^3/cmm (157-399) 05/05/24 00:15 MPV 10.1 fL (7.4-10.4) 05/05/24 00:15 Neut % (Auto) 66.5 % 05/05/24 00:15 Lymph % (Auto) 23.1 % 05/05/24 00:15 [place] % (Auto) 8.5 % 05/05/24 00:15 Eos % (Auto) 1.1 % 05/05/24 00:15 Baso % (Auto) 0.3 % 05/05/24 00:15 Neut # (Auto) 9.13 10^3/uL (1.8-7.7) H 05/05/24 00:15 Lymph # (Auto) 3.2 10^3/uL (0.8-4.8) 05/05/24 00:15 [place] # (Auto) 1.2 10^3/uL (0.2-0.9) H 05/05/24 00:15 Eos # (Auto) 0.2 10^3/uL (0.0-0.8) 05/05/24 00:15 Baso # (Auto) 0.0 10^3/uL (0.0-0.1) 05/05/24 00:15 Nucleated RBC % (auto) 0 % 05/05/24 00:15 Nucleated RBCs # 0.0 /100WBC 05/05/24 00:15 PT 11.40 SECONDS (12.1-14.9) L 05/05/24 00:15 INR 0.81 (0.8-1.2) 05/05/24 00:15 APTT 32.5 SECONDS (23.9-36.7) 05/05/24 00:15 D-Dimer 1.09 ug/mLFEU (0-0.59) H 05/05/24 00:15 Sodium 139 mmol/L (136-145) 05/05/24 00:15 Potassium 3.8 mmol/L (3.5-5.1) 05/05/24 00:15 Chloride 101 mmol/L (98-107) 05/05/24 00:15 Carbon Dioxide 24 mmol/L (22-29) 05/05/24 00:15 Anion Gap 17.8 (5-19) 05/05/24 00:15 BUN 15 mg/dL (8-23) 05/05/24 00:15 Creatinine 0.8 mg/dL (0.5-0.9) 05/05/24 00:15 GFR Calculation Not Reportable 05/05/24 00:15 Glucose 97 mg/dL (65-115) 05/05/24 00:15 Calculated Osmolality 289 mOsm/kg (285-295) 05/05/24 00:15 Calcium 10.7 mg/dL (8.5-10.5) H 05/05/24 00:15 Total Bilirubin 0.9 mg/dL (0.15-1.2) 05/05/24 00:15 AST 21 U/L (0-32) 05/05/24 00:15 ALT 18 U/L (0-33) 05/05/24 00:15 Alkaline Phosphatase 125 U/L (35-105) H 05/05/24 00:15 Troponin T Baseline < 6 ng/L (0-10) 05/05/24 00:15 Troponin T 120 Minute 6.75 ng/L (0-10) 05/05/24 01:52 Delta Troponin T 0.57685 ABS# (0-10) 05/05/24 01:52 NT-Pro-B Natriuret Pep 66 pg/mL (0-125) 05/05/24 00:15 Total Protein 7.3 g/dL (6.6-8.7) 05/05/24 00:15 Albumin 4.6 g/dL (3.5-5.2) 05/05/24 00:15 Globulin 2.7 g/dL (1.3-4.6) 05/05/24 00:15 Lipase 50 U/L (13-60) 05/05/24 00:15 Urine Color Yellow (Yellow) 05/05/24 02:01 Urine Appearance Clear (CLEAR) 05/05/24 02:01 Urine pH 6.0 (5-7) 05/05/24 02:01 Ur Specific [place] 1.046 (1.005-1.030) H 05/05/24 02:01 Urine Protein Negative (Negative) 05/05/24 02:01 Urine Glucose (UA) Negative (Normal) 05/05/24 02:01 Urine Ketones Trace (Negative) 05/05/24 02:01 Urine Blood Negative (Negative) 05/05/24 02:01 Urine Nitrate Negative (Negative) 05/05/24 02:01 Urine Bilirubin Negative (Negative) 05/05/24 02:01 Urine Urobilinogen 0.2 mg/dL (Negative) 05/05/24 02:01 Ur Leukocyte Esterase Negative (Negative) 05/05/24 02:01 Urine RBC 0-2 /hpf (0-2) 05/05/24 02:01 Urine WBC 0-5 /hpf (0-5) 05/05/24 02:01 Ur Squamous Epith Cells 0-5 /hpf (0-5) 05/05/24 02:01 Amorphous Sediment Not Reportable 05/05/24 02:01 Urine Bacteria None seen /hpf (NONE) 05/05/24 02:01 Hyaline Casts 0-4 /lpf H 05/05/24 02:01 All radiology interpretation(s) finalized by discharge Discharge Plan Discharge Patient Disposition: Home Clinical Impression: Biliary colic Condition: Stable Prescriptions: New hydrocodone-acetaminophen 5-325 mg tablet 1 tab PO Q8H PRN (Reason: pain) Qty: 7 0RF ondansetron 4 mg tablet,disintegrating 4 mg PO Q6H PRN (Reason: nausea and vomiting) Qty: 14 0RF lansoprazole [Prevacid] 30 mg capsule,delayed release(DR/EC) 30 mg PO DAILY Qty: 30 0RF No Action metoprolol tartrate 25 mg tablet 12.5 mg PO BID sumatriptan succinate 100 mg tablet 100 mg PO Q2H PRN atorvastatin 10 mg tablet PO melatonin 10 mg capsule 10 mg PO DAILY calcium PO potassium PO vitamin C PO galantamine 4 mg tablet See Rx Instructions .ROUTE .COMPLEX Qty: 180 3RF Dose Instruction: TAKE 1 TABLET BY MOUTH TWICE DAILY WITH THE MORNING AND EVENING MEAL Rx Instructions: TAKE 1 TABLET BY MOUTH TWICE DAILY WITH THE MORNING AND EVENING MEAL Discharge Orders: Discharge ED (Routine); Ordered 05/05/24 Ordered By: Wilder Briggs Referrals: Kellie Velazquez MD [Primary Care Provider] - 1-3 days Patient Instructions: Biliary Colic (ED), Abdominal Pain (ED), Opioid Safety, Pain Management Activity Restrictions/Additional Instructions: Return for fever greater than 100 ?F, vomiting liquids or medications, increasing pain despite treatment, other concerning symptoms. Take nausea medication as needed and pain medication as needed. Follow a liquid diet for the next 12 hours, then advance to a bland, easily digestible diet following that. Case management has been asked to make you a surgery clinic appointment as well as another outpatient test for your gallbladder. You should hear from them this week. Coding Level of Care Code ED Telegraph And Teletype Operator for Mirian Collins
[2024-05-05] MEDS: iohexol 350 mg/mL 500 mL Btl (per mL) IV (01:42)
--- NOTE | 2024-05-05 01:53 | USR_ITS ---
PROCEDURE INFORMATION: Exam: US Abdomen, Limited; Right Upper Quadrant Exam date and time: 05/05/2024 2:55 AM Age: 73 years old Clinical indication: Abdominal pain; Localized; Right upper quadrant (ruq); Additional info: Ruq pain TECHNIQUE: Imaging protocol: Real time ultrasound of the abdomen with image documentation. Limited exam focused on the right upper quadrant. COMPARISON: CT angio chest w abd pel w con 05/05/2024 1:30 AM FINDINGS: Liver: Normal. No masses. Gallbladder: Normal. No gallstones. There is no gallbladder wall thickening. Biliary ducts: Normal. No stones. No dilation. Pancreas: Obscured by bowel gas . Right kidney: Dilated right ureter. No mass. No hydronephrosis. Other findings: Study is limited by overlying bowel gas. US/US gall bladder [id number] IMPRESSION: 1. Dilated right ureter without right hydronephrosis. 2. Pancreas obscured by bowel gas.
[2024-05-05 02:12] LABS: Troponin 5 2HR 6.75 ng/L (0-10); Troponin 5 2HR Delta 0.75001 ABS# (0-10)
[2024-05-05 02:15] LABS: Bilirubin Urine Negative (Negative); Blood Urine Negative (Negative); Glucose Urine UA Negative (Normal); Ketones Urine Trace (Negative); Leukocyte Esterase Urine Negative (Negative); Nitrate Urine Negative (Negative); Protein Urine Negative (Negative); Urine Appearance Clear (CLEAR); Urine Color Yellow (Yellow); Urobilinogen Urine 0.2 mg/dL (Negative)
[2024-05-05 02:17] LABS: Specific Gravity, Urine 1.046 (1.005-1.030)
[2024-05-05 02:20] LABS: Add Urine Microscopic? YES; Bacteria Urine None Seen /hpf; Hyaline Casts Urine 0-4 /lpf; RBC Urine 0-2 /hpf (0-2); Squamous Epithelial Cell Urine 0-5 /hpf (0-5); WBC Urine 0-5 /hpf (0-5)
[2024-05-05] MEDS: ketorolac 30 mg/mL INJ 15 MG IVP (02:37)
--- NOTE | 2024-05-05 07:33 | DCPLANNER ---
messaged gen surg and faxed outpatient hida scan to scheduling
== END 2024-05-05 04:34 | disposition home or self-care (01) ==
PROVIDERS: Emergency Provider Emergency Medicine; PCP Internal Medicine
DX: K80.50 Calculus of bile duct without cholangitis or cholecystitis without obstruction (principal)
CPT/HCPCS: 36415; 71045; 71275; 74177; 76705; 80053; 81001; 83690; 83880; 84484; 85025; 85378; 85610; 85730; 93005; 96374; 96375; 96376; 99285; J1885; J2270; J2405

== ENCOUNTER 2024-10-07 21:56 | Emergency (ER) | payer MEDICARE, OTHER, SELFPAY ==
[2024-10-07 22:13] VITALS: BP 128/76; PULSE 76; RESP 16; TEMP 36.6; O2SAT 97
--- NOTE | 2024-10-07 22:55 | XRR_ITS ---
PROCEDURE INFORMATION: Exam: XR Right Foot Exam date and time: 10/08/2024 12:09 AM Age: 74 years old Clinical indication: Injury or trauma; Fall; Blunt trauma; Foot; Right TECHNIQUE: Imaging protocol: Radiologic exam of the right foot. Views: 3 or more views. COMPARISON: No relevant prior studies available. FINDINGS: Bones/joints: Minimally displaced greenstick-type fracture involving the midshaft and distal diaphysis of the 3rd metatarsal. Soft tissues: Soft tissues are swollen about the forefoot. XR/XR foot RT min 3V* [id number] IMPRESSION: 1. Minimally displaced greenstick-type fracture involving the midshaft and distal diaphysis of the 3rd metatarsal. 2. Soft tissues are swollen about the forefoot.
[2024-10-08 02:19] VITALS: PULSE 74; O2SAT 97
[2024-10-08] MEDS: HYDROcodone-acetaminophen 5-325 mg Tablet 1 TAB PO (02:35)
--- NOTE | 2024-10-08 02:46 | W.ED.EXTPRO ---
HPI - Extremity Problem General: Chief complaint: Extremity Injury, Lower Stated complaint: Rt Foot Injury Time Seen by Provider: 10/08/24 02:23 History of Present Illness: Patient states that she fell off of a ladder 4 days ago and is having right foot pain and swelling ever since then. She states that she did twist her knee but her knee has gotten better but her foot has gotten worse. Related Data Home Medications ?Medication ?Instructions ?Recorded ?Confirmed metoprolol tartrate 25 mg tablet 12.5 mg PO BID 08/07/19 04/23/24 sumatriptan succinate 100 mg tablet 100 mg PO Q2H PRN 08/07/19 04/23/24 atorvastatin 10 mg tablet mg PO 06/26/23 04/23/24 melatonin 10 mg capsule 10 mg PO DAILY 06/26/23 04/23/24 calcium PO 04/23/24 04/23/24 potassium PO 04/23/24 04/23/24 vitamin C PO 04/23/24 04/23/24 Previous Rx's ?Medication ?Instructions ?Recorded galantamine 4 mg tablet See Rx Instructions .Route 04/23/24 .COMPLEX #180 tabs hydrocodone 5 mg-acetaminophen 325 1 tab PO Q8H PRN pain #7 tabs 05/05/24 mg tablet lansoprazole 30 mg capsule,delayed 30 mg PO DAILY #30 caps 05/05/24 release (Prevacid) ondansetron 4 mg disintegrating 4 mg PO Q6H PRN nausea and 05/05/24 tablet vomiting #14 tabs hydrocodone 5 mg-acetaminophen 325 1 tab PO Q6H #20 tabs 10/08/24 mg tablet Allergies Allergy/AdvReac Type Severity Reaction Status Date / Time Sulfa (Sulfonamide Allergy Unknown Uknown Verified 10/07/24 22:19 Antibiotics) PFSH ED PFSH: Family History Other CAD (coronary artery disease) Cancer Diabetes Hypertension Social History Smoking and tobacco/nicotine status: never used tobacco/nicotine Physical Exam Neck/C-Spine: COMMON NORMALS: no JVD Resp: COMMON NORMALS: normal respiratory effort, No retractions, No use of accessory muscles, clear to auscultation bilaterally and percussion normal AUSCULTATION: clear to auscultation bilaterally PERCUSSION: percussion normal Cardio: COMMON NORMALS: no JVD, regular rate, regular rhythm, S1 normal heart sound present, S2 normal heart sound present, No gallops present (Cardio), No clicks present (Cardio), No murmurs present (Cardio), No rub (Cardio) and Peripheral pulses 2+ throughout RATE: regular rate RHYTHM: regular rhythm HEART SOUNDS: S1 normal heart sound present and S2 normal heart sound present PERIPHERAL PULSES: Peripheral pulses 2+ throughout Extremity: OTHER: Patient with right foot pain and swelling. Tenderness over the distal midfoot. Neurovascular intact distal. Course Vital Signs: Vital signs: Vital Signs Temperature 97.9 F 10/07/24 22:13 Pulse Rate 76 10/07/24 22:13 Respiratory Rate 16 10/07/24 22:13 Blood Pressure 128/76 10/07/24 22:13 Pulse Oximetry 97 10/07/24 22:13 MDM - Extremity (Nontraumatic) Medical Decision Making Patient with right foot pain and swelling after falling off a ladder from the bottom rung 4 days ago. States the pain has been just gradually worsening over the past couple days. X-rays show fracture of the distal third metatarsal. Will place patient in splint and have patient follow-up with orthopedics. Patient neurovascularly intact after splinting. Lab Data Radiology Impressions Foot X-Ray 10/07/24 22:55 IMPRESSION: 1. Minimally displaced greenstick-type fracture involving the midshaft and distal diaphysis of the 3rd metatarsal. 2. Soft tissues are swollen about the forefoot. All radiology interpretation(s) finalized by discharge Discharge Plan Discharge Patient Disposition: Home Clinical Impression: Fracture of third metatarsal bone of right foot Qualifiers: Encounter type: initial encounter Fracture type: closed Fracture alignment: nondisplaced Qualified Code(s): S92.334A - Nondisplaced fracture of third metatarsal bone, right foot, initial encounter for closed fracture Condition: Stable Prescriptions: New hydrocodone-acetaminophen 5-325 mg tablet 1 tab PO Q6H Qty: 20 0RF No Action metoprolol tartrate 25 mg tablet 12.5 mg PO BID sumatriptan succinate 100 mg tablet 100 mg PO Q2H PRN atorvastatin 10 mg tablet PO melatonin 10 mg capsule 10 mg PO DAILY calcium PO potassium PO vitamin C PO galantamine 4 mg tablet See Rx Instructions .ROUTE .COMPLEX Qty: 180 3RF Dose Instruction: TAKE 1 TABLET BY MOUTH TWICE DAILY WITH THE MORNING AND EVENING MEAL Rx Instructions: TAKE 1 TABLET BY MOUTH TWICE DAILY WITH THE MORNING AND EVENING MEAL hydrocodone-acetaminophen 5-325 mg tablet 1 tab PO Q8H PRN (Reason: pain) Qty: 7 0RF ondansetron 4 mg tablet,disintegrating 4 mg PO Q6H PRN (Reason: nausea and vomiting) Qty: 14 0RF lansoprazole [Prevacid] 30 mg capsule,delayed release(DR/EC) 30 mg PO DAILY Qty: 30 0RF Discharge Orders: Discharge ED (Routine); Ordered 10/08/24 Ordered By: Suresh Love Referrals: Kellie Velazquez MD [Primary Care Provider, Internal Medicine] Claudio Guerra MD [Physician, Orthopedics] Discharge Diet: Usual diet Discharge Activity: Use walker/crutches as instructed Patient Instructions: Opioid Safety, Pain Management Print Language: Divehi Coding Level of Care Code ED Coal Picker for Mirian Collins
[2024-10-08 03:30] VITALS: PULSE 70; O2SAT 99
== END 2024-10-08 03:00 | disposition home or self-care (01) ==
PROVIDERS: Emergency Provider Emergency Medicine; PCP Internal Medicine
DX: S92.334A Nondisplaced fracture of third metatarsal bone, right foot, initial encounter for closed fracture (principal); W11.XXXA Fall on and from ladder, initial encounter
CPT/HCPCS: 29515; 73630; 99283; E0114; J9999

== ENCOUNTER → 2024-10-14 15:29 | Outpatient (BNVA) | payer MEDICARE, OTHER, SELFPAY | PROVIDERS: PCP Internal Medicine; Visit Provider Student in an Organized Health Care Education/Training Program | DX: S92.334A Nondisplaced fracture of third metatarsal bone, right foot, initial encounter for closed fracture (principal); W11.XXXA Fall on and from ladder, initial encounter | CPT/HCPCS: 28470; 73630; 99204 ==

== ENCOUNTER → 2024-10-29 14:43 | Outpatient (BNVA) | payer MEDICARE, OTHER, SELFPAY | PROVIDERS: PCP Internal Medicine; Visit Provider Student in an Organized Health Care Education/Training Program | DX: S92.334D Nondisplaced fracture of third metatarsal bone, right foot, subsequent encounter for fracture with routine healing (principal); X58.XXXD Exposure to other specified factors, subsequent encounter | CPT/HCPCS: 73630; 99213 ==

== ENCOUNTER → 2024-11-26 11:03 | Outpatient (BNVA) | payer MEDICARE, OTHER, SELFPAY | PROVIDERS: PCP Internal Medicine; Visit Provider Student in an Organized Health Care Education/Training Program | DX: S92.334A Nondisplaced fracture of third metatarsal bone, right foot, initial encounter for closed fracture (principal); X58.XXXA Exposure to other specified factors, initial encounter | CPT/HCPCS: 73630 ==

== ENCOUNTER 2024-11-26 15:04 | Outpatient (CLI) | payer MEDICARE, OTHER, SELFPAY | END 2024-11-26 15:05 | disposition home or self-care (01) | PROVIDERS: PCP Internal Medicine; Visit Provider Student in an Organized Health Care Education/Training Program | DX: Z46.89 Encounter for fitting and adjustment of other specified devices (principal); S92.334A Nondisplaced fracture of third metatarsal bone, right foot, initial encounter for closed fracture; X58.XXXA Exposure to other specified factors, initial encounter | CPT/HCPCS: L3100 ==

== ENCOUNTER → 2025-01-13 10:54 | Outpatient (BNVA) | payer MEDICARE, OTHER, SELFPAY | PROVIDERS: PCP Internal Medicine; Visit Provider Student in an Organized Health Care Education/Training Program | DX: S92.334D Nondisplaced fracture of third metatarsal bone, right foot, subsequent encounter for fracture with routine healing (principal); X58.XXXD Exposure to other specified factors, subsequent encounter | CPT/HCPCS: 73630; 99213 ==

== ENCOUNTER → 2025-02-19 15:18 | Outpatient (BNVA) | payer MEDICARE, OTHER, SELFPAY | PROVIDERS: PCP Internal Medicine; Visit Provider Clinical Nurse Specialist Adult Health | DX: J06.9 Acute upper respiratory infection, unspecified (principal) | CPT/HCPCS: 87071; 87880 ==

== ENCOUNTER → 2025-04-13 13:30 | Outpatient (BNVA) | payer MEDICARE, OTHER, SELFPAY | PROVIDERS: PCP Internal Medicine; Visit Provider Specialist | DX: G31.84 Mild cognitive impairment of uncertain or unknown etiology (principal); R03.0 Elevated blood-pressure reading, without diagnosis of hypertension | CPT/HCPCS: 36415; 82542; 83520; 99212 ==

== ENCOUNTER 2025-05-11 14:26 | Outpatient (CLI) | payer MEDICARE, OTHER, SELFPAY ==
--- NOTE | 2025-05-11 14:37 | MM_ITS ---
WS: [id number] BILATERAL 3D TOMOSYNTHESIS DIGITAL SCREENING MAMMOGRAPHY WITH CAD CLINICAL INFORMATION: SCREENING HISTORY: Screening mammogram. No current complaints. COMPARISON: 2023 TECHNIQUE: Bilateral CC and MLO views. FINDINGS: Scattered fibroglandular densities bilaterally. No suspicious focal mass, asymmetry, calcifications, or architectural distortion. No evidence of malignancy. MM/MM scr BI tomosynthesis [id number] IMPRESSION: DENSITY: There are scattered areas of fibroglandular density. BI-RADS: 1 - Negative. FOLLOW UP: 1 Year Follow-up Recommend return to annual screening mammography.
== END 2025-05-11 14:27 | disposition home or self-care (01) ==
LOC: RAD 14:29
PROVIDERS: PCP Internal Medicine; Visit Provider Internal Medicine
DX: Z12.31 Encounter for screening mammogram for malignant neoplasm of breast (principal); R92.323 Mammographic fibroglandular density, bilateral breasts
CPT/HCPCS: 77063; 77067